=== PATIENT | male | born 2000 | race Caucasian/White ===

== ENCOUNTER 2025-08-27 01:02 | Emergency (ER) | payer OTHER ==
[~2025-08-27] VITALS: Ht 185.4 cm; Wt 113.4 kg
[2025-08-27] MEDS ORDERED: OCUFLOX511 RIGHTEAR (02:44)
== END 2025-08-28 02:50 | disposition home or self-care (01) ==
LOC: ER 01:02
DX: H60.91 Unspecified otitis externa, right ear (principal); Z59.89 Other problems related to housing and economic circumstances
CPT/HCPCS: 99282; A9270

== ENCOUNTER 2025-08-31 00:42 | Emergency (ER) | payer OTHER ==
[~2025-08-31] VITALS: Ht 185.4 cm; Wt 113.4 kg
[~2025-08-31 00:42] MED LIST: OCUFLOX511 RIGHTEAR
[2025-08-31] MEDS ORDERED: RX Prepack 6 Tabs Oxycodone 5mg UD ONE (01:30)
[2025-08-31] MEDS ORDERED: AMOCLA875 PO (01:31)
== END 2025-08-31 01:46 | disposition home or self-care (01) ==
LOC: ER 00:42
DX: K04.7 Periapical abscess without sinus (principal)
CPT/HCPCS: 99282; A9270